=== PATIENT | male | born 1975 | race African-American/Black ===

== ENCOUNTER 2017-01-29 19:49 | Emergency (ER) | payer MEDICAID ==
[~2017-01-29] VITALS: Ht 193 cm; Wt 130.0 kg
[~2017-01-29 19:49] MED LIST: ATEN25TA PO; HYDR12.53 PO; LISI2.5T PO
[2017-01-29] MEDS ORDERED: DIPHENHYDRAMINE 50 MG/ML, 1ML ONE ×2 (20:28→21:08)
[2017-01-29] MEDS ORDERED: PROCHLORPERAZINE 5 MG/ML, 2ML ONE (20:28)
[2017-01-29] MEDS ORDERED: PROCHLORPERAZINE 5 MG/ML, 2ML IVPush ONE (20:30)
[2017-01-29] MEDS ORDERED: DIPHENHYDRAMINE 50 MG/ML, 1ML IVPush ONE ×2 (20:30→21:30)
[2017-01-29] MEDS ORDERED: SODIUM CHLORIDE 0.9% 1,000ML IVBOLUS ONE (20:30)
[2017-01-29] MEDS ORDERED: SODIUM CHLORIDE FLUSH 10ML SYR IVF ONE (20:30)
[2017-01-29 21:05] LABS: HEMOGLOBIN 15.1 g/dL (13.7-18.0)
[2017-01-29 21:08] LABS: ASPARTATE AMINO TRANSFERASE 23 U/L (15-37); BLOOD UREA NITROGEN 13 mg/dL (7-18)
[2017-01-29 21:44] VITALS: BP 120/65
== END 2017-01-29 21:46 | disposition home or self-care (01) ==
LOC: ED 21:40
DX: G44.201 Tension-type headache, unspecified, intractable (principal); D72.829 Elevated white blood cell count, unspecified; I10 Essential (primary) hypertension
CPT/HCPCS: 36415; 70450; 80053; 85025; 96361; 96374; 96375; 96376; 99285; J0780; J1200; J7030

== ENCOUNTER 2017-05-12 18:52 | Emergency (ER) | payer MEDICAID ==
[~2017-05-12] VITALS: Ht 190.5 cm; Wt 130.4 kg
[2017-05-12 18:53] VITALS: BP 146/92
[2017-05-12] MEDS ORDERED: METHOCARBAMOL 750 MG TABLET ONE (19:24)
[2017-05-12] MEDS ORDERED: KETOROLAC 30 MG/1 ML ONE (19:24)
[2017-05-12] MEDS ORDERED: ONDANSETRON ODT 4 MG ONE (19:24)
[2017-05-12] MEDS ORDERED: OXYcodone/APAP 5/325MG TABLET ONE (19:24)
[2017-05-12] MEDS ORDERED: OXYcodone/APAP 5/325MG TABLET PO ONE (19:30)
[2017-05-12] MEDS ORDERED: KETOROLAC 30 MG/1 ML IM ONE (19:30)
[2017-05-12] MEDS ORDERED: ONDANSETRON ODT 4 MG PO ONE (19:30)
[2017-05-12] MEDS ORDERED: METHOCARBAMOL 750 MG TABLET PO ONE (19:30)
[2017-05-12 20:26] LABS: BLOOD UREA NITROGEN 19 mg/dL (7-18)
[2017-05-12] MEDS ORDERED: SODIUM CHLORIDE FLUSH 10ML SYR IVF ONE (20:30)
[2017-05-12 20:38] LABS: DIFF TOTAL CELLS COUNTED 100 CELL DIFF
[2017-05-12] MEDS ORDERED: OMNIPAQUE 350 MG/ML, 150 ML BOTTLE ONE (21:00)
[2017-05-12 21:12] LABS: ANISOCYTOSIS 1+
[2017-05-12 21:13] LABS: STOMATOCYTES 1+
[2017-05-12 21:22] LABS: VERIFY COUNTS? YES
== END 2017-05-12 21:37 | disposition home or self-care (01) ==
LOC: ED 21:27
DX: M54.5 Low back pain (principal); I48.91 Unspecified atrial fibrillation; I48.92 Unspecified atrial flutter; I10 Essential (primary) hypertension; E11.9 Type 2 diabetes mellitus without complications; F17.200 Nicotine dependence, unspecified, uncomplicated; Z79.84 Long term (current) use of oral hypoglycemic drugs; Z88.1 Allergy status to other antibiotic agents
CPT/HCPCS: 36415; 72110; 74177; 80048; 81001; 85025; 96372; 99285; J1885; Q0162; Q9967

== ENCOUNTER 2019-01-19 14:01 | Inpatient (IN) | payer MEDICAID ==
[~2019-01-19] VITALS: Ht 193 cm; Wt 129.6 kg
[~2019-01-19 14:01] MED LIST changes: +HYDR12.517 PO; -HYDR12.53 PO
[2019-01-19] MEDS ORDERED: SODIUM CHLORIDE FLUSH 10ML SYR IVF ONE (14:30)
[2019-01-19] MEDS ORDERED: SODIUM CHLORIDE 0.9% 1,000ML IVBOLUS ONE (14:30)
[2019-01-19 14:47] LABS: PH, VENOUS 7.389 pH (7.320-7.420)
[2019-01-19 14:52] LABS: MEAN CORPUSCULAR HEMOGLOBIN 27.9 pg (27.5-34.5); MEAN CORPUSCULAR HGB CONC 32.5 g/dL (33.2-36.2); MEAN CORPUSCULAR VOLUME 85.8 fL (81-97); PLATELET COUNT 243 x10^3/uL (130-400); RED BLOOD COUNT 5.87 x10^6/uL (4.38-5.82); RED CELL DISTRIBUTION WIDTH 12.8 % (9.4-14.8)
[2019-01-19 15:01] LABS: ALANINE AMINOTRANSFERASE 47 U/L (12-78); ALBUMIN 4.5 g/dL (3.4-5.0); ANION GAP 13 mmol/L (5-15); CALCIUM 9.5 mg/dL (8.5-10.1); CHLORIDE 89 mmol/L (98-107); CREATININE 1.96 mg/dL (0.7-1.3)
--- NOTE | 2019-01-19 15:08 | NUR ---
REPORT RAHEL'KIRIT FROM DIANNA QUIROZ. ERP WAS IN TO SPEAK WITH PT AND FAMILY AND REVIEW POC. Addendum: 01/19/19 at 1530 by OFELIA PT STATES, "I FEEL GOOD RIGHT NOW, I FEEL LIKE I COULD GO HOME." HR REMAINS 150s-160s A-FIB.
[2019-01-19 15:12] LABS: ALKALINE PHOSPHATASE 88 U/L (45-117); BILIRUBIN,TOTAL 0.9 mg/dL (0.2-1.0); FREE T4 (FREE THYROXINE) 1.44 ng/dL (0.76-1.46); THYROID STIMULATING HORMONE 0.551 mIU/L (0.358-3.740); TOTAL PROTEIN 8.8 g/dL (6.4-8.2)
[2019-01-19] MEDS ORDERED: DILTIAZEM 125 MG in DEXTROSE 5% 100 ML IV SCH (15:12)
[2019-01-19] MEDS ORDERED: SODIUM CHLORIDE 0.9% 1,000 ML IV ONE (15:13)
[2019-01-19] MEDS ORDERED: DILTIAZEM 5 MG/ML, 10ML ONE (15:19)
[2019-01-19] MEDS ORDERED: HEPARIN 5,000 UNITS/ML, 1ML ONE (15:22)
[2019-01-19] MEDS ORDERED: INSULIN SINGLE DOSE, ER SQ-INSULIN ONE (15:23)
[2019-01-19] MEDS ORDERED: HEPARIN 25,000 UNITS/500ML PMX 500 ML ONE (15:24)
[2019-01-19 15:25] LABS: ACETONE, SERUM Small (20mg/dL) mg/dL (Negative)
[2019-01-19 15:28] LABS: BASOPHILS # (AUTO) 0.04 x10^3/uL (0-0.1); BASOPHILS % (AUTO) 0 % (0-1); EOSINOPHILS # (AUTO) 0.08 x10^3/uL (0-0.4); EOSINOPHILS % (AUTO) 1 % (1-7); LYMPHOCYTES # (AUTO) 5.24 x10^3/uL (1-3.4); LYMPHOCYTES % (AUTO) 33 % (22-44); MD SCAN; MONOCYTES # (AUTO) 0.69 x10^3/uL (0.2-0.8); MONOCYTES % (AUTO) 4 % (2-9); NEUTROPHILS # (AUTO) 10.04 x10^3/uL (1.8-6.8); NEUTROPHILS % (AUTO) 62 % (42-75)
[2019-01-19 15:30] LABS: INTERNATIONAL NORMALIZED RATIO 0.97 (0.93-1.1); PROTHROMBIN TIME 10.2 Seconds (9.6-11.5)
[2019-01-19] MEDS ORDERED: HEPARIN 5,000 UNITS/ML, 1ML IV ONE (15:30)
[2019-01-19] MEDS ORDERED: DILTIAZEM 5 MG/ML, 5ML IV ONE (15:30)
[2019-01-19] MEDS ORDERED: HEPARIN 25,000 UNITS/500ML PMX 500 ML IV PRN (15:30)
[2019-01-19] MEDS ORDERED: INSULIN REGULAR 100 UNITS/ML, 3ML VIAL SQ-INSULIN ONE ×2 (15:30)
[2019-01-19 15:31] LABS: CHOLESTEROL, TOTAL 155 mg/dL (140-239); TRIGLYCERIDES 490 mg/dL (50-200)
[2019-01-19 15:34] LABS: CHOL/HDL RATIO 6.2; HDL CHOL % 16 % (26-37); HDL CHOLESTEROL (DIRECT) 25 mg/dL (40-60); TROPONIN I < 0.015 ng/mL (0.000-0.045)
[2019-01-19 15:37] LABS: MICROSCOPIC AUTO
[2019-01-19] MEDS: HEPARIN 5,000 UNITS/ML, 1ML IV PRN ×2 (15:52→21:52)
[2019-01-19 15:55] LABS: CULTURE INDICATED? NO
--- NOTE | 2019-01-19 16:00 | NUR ---
MEDS GIVEN ORDERED, HEPAIN AND CARDIZEM GTTS STARTED. TRENCH PIPE LAYER WAS IN TO SPEAK WITH PT AND .
[2019-01-19 16:26] LABS: HEMOGLOBIN A1C 11.7 % (4.2-6.3)
[2019-01-19] MEDS ORDERED: INSULIN REGULAR 100 UNITS/ML, 3ML VIAL IVPush ONE (16:30)
[2019-01-19] MEDS ORDERED: DILTIAZEM 5 MG/ML, 5ML IVPush PRN ×2 (16:30→17:00)
[2019-01-19] MEDS ORDERED: DILTIAZEM 5 MG/ML, 5ML IVPush ONE (16:30)
[2019-01-19] MEDS: SODIUM CHLORIDE 0.9% 4,000 ML IV SCH (16:58)
[2019-01-19] MEDS ORDERED: DEXTROSE 4 GM TAB.CHEW PO PRN (17:00)
[2019-01-19] MEDS ORDERED: DEXTROSE 50%, 50ML SYRINGE IVPush PRN (17:00)
[2019-01-19] MEDS ORDERED: GLUCAGON 1 MG IM PRN (17:00)
--- NOTE | 2019-01-19 17:04 | NUR ---
PT WAS GIVEN ANOTHER 10UNITS INSULIN IVP AND ANOTHER 25MG CARDIZEM IVP FOR HR SUSTAINED IN 150S. HOSPITALIST WAS IN TO SEE PT. IVF INFUSING AT 250ML/HR. UPDATED JACOBO SHAVER RN ON POC. CT TECH TRANSPORTING PT UPSTAIRS NOW.
[2019-01-19 17:20] VITALS: BP 124/84
[2019-01-19] MEDS ORDERED: METOPROLOL TARTRATE 50 MG TABLET PO SCH (17:30)
[2019-01-19] MEDS: NICOTINE 21 MG/24 HR PATCH.TD24 TD SCH (17:45)
[2019-01-19] MEDS: INSULIN GLARGINE 100 UNITS/ML, PEN SQ-INSULIN SCH ×2 (17:47→21:14)
[2019-01-19] MEDS: INSULIN LISPRO 100 UNITS/ML, PEN SQ-INSULIN SCH ×2 (17:48→21:13)
[2019-01-19 17:52] LABS: ANION GAP 13 mmol/L (5-15); CALCIUM 8.7 mg/dL (8.5-10.1); CHLORIDE 98 mmol/L (98-107); CREATININE 1.62 mg/dL (0.7-1.3)
[2019-01-19] MEDS ORDERED: DILTIAZEM 125 MG in SODIUM CHLORIDE 0.9% 100 ML IV SCH (18:00)
[2019-01-19 18:34] VITALS: BP 121/82
[2019-01-19] MEDS: SODIUM CHLORIDE FLUSH 10ML SYR IVF SCH (21:14)
[2019-01-19] MEDS: METOPROLOL TARTRATE 25 MG TABLET PO SCH (21:52)
[2019-01-20 00:59] VITALS: BP 111/75
[2019-01-20 04:46] LABS: MEAN CORPUSCULAR HEMOGLOBIN 28.7 pg (27.5-34.5); MEAN CORPUSCULAR HGB CONC 33.2 g/dL (33.2-36.2); MEAN CORPUSCULAR VOLUME 86.3 fL (81-97); MEAN PLATELET VOLUME 10.3 fL (7.4-10.4); PLATELET COUNT 219 x10^3/uL (130-400); RED BLOOD COUNT 5.03 x10^6/uL (4.38-5.82); RED CELL DISTRIBUTION WIDTH 12.9 % (9.4-14.8)
[2019-01-20 04:52] LABS: ALBUMIN 3.4 g/dL (3.4-5.0); ANION GAP 9 mmol/L (5-15); CHLORIDE 106 mmol/L (98-107)
[2019-01-20 04:55] LABS: ALANINE AMINOTRANSFERASE 41 U/L (12-78); ALKALINE PHOSPHATASE 60 U/L (45-117); BILIRUBIN,TOTAL 0.8 mg/dL (0.2-1.0); TOTAL PROTEIN 6.7 g/dL (6.4-8.2)
[2019-01-20 05:42] LABS: MD YES
[2019-01-20 05:44] LABS: ANISOCYTOSIS 1+; EOS% (MANUAL) 3 % (1-7); LYMPH#(MANUAL) 6.38 x10^3/uL (1-3.4); LYMPHS% (MANUAL) 48 % (22-44); MONOS#(MANUAL) 0.67 x10^3/uL (0.3-2.7); MONOS% (MANUAL) 5 % (2-9); SEG#(MANUAL) 5.85 x10^3/uL (1.8-6.8); SEGS% (MANUAL) 44 % (42-75)
[2019-01-20 05:45] LABS: <PLATELET ESTIMATE> ADEQUATE; <PLT MORPHOLOGY> NORMAL PLT MORPH
[2019-01-20] MEDS: HEPARIN 5,000 UNITS/ML, 1ML IV PRN (05:52)
[2019-01-20] MEDS ORDERED: ASPIRIN 81 MG TABLET EC PO SCH (06:00)
[2019-01-20 06:47] VITALS: BP 96/63
[2019-01-20] MEDS: INSULIN LISPRO 100 UNITS/ML, PEN SQ-INSULIN SCH ×4 (08:16→21:45)
[2019-01-20] MEDS: METOPROLOL TARTRATE 25 MG TABLET PO SCH ×2 (08:17→21:18)
[2019-01-20] MEDS: INSULIN GLARGINE 100 UNITS/ML, PEN SQ-INSULIN SCH ×2 (08:17→21:45)
[2019-01-20] MEDS: PANTOPROZOLE 40MG TABLET PO SCH (08:17)
[2019-01-20] MEDS: SODIUM CHLORIDE FLUSH 10ML SYR IVF SCH ×2 (08:17→21:18)
[2019-01-20] MEDS: SODIUM CHLORIDE 0.9% 4,000 ML IV SCH (08:44)
[2019-01-20] MEDS ORDERED: DILTIAZEM 240 MG CAP.ER.24H PO SCH (09:00)
[2019-01-20] MEDS ORDERED: DIGOXIN 0.25 MG/ML, 2ML IVPush ONE (10:00)
[2019-01-20] MEDS ORDERED: AMIODARONE 150 MG in DEXTROSE 5% 100 ML IV ONE ×2 (10:30→17:30)
[2019-01-20] MEDS ORDERED: FILTER 0.22 MICRON FOR AMIODARONE IV PRN (10:30)
[2019-01-20] MEDS: AMIODARONE 200 MG TABLET PO SCH ×3 (12:37→21:17)
[2019-01-20 16:10] VITALS: BP 141/90
[2019-01-20] MEDS: NICOTINE 21 MG/24 HR PATCH.TD24 TD SCH (16:25)
[2019-01-20] MEDS ORDERED: RIVAROXABAN 20 MG TABLET PO SCH (17:00)
[2019-01-20 20:15] VITALS: BP 118/78
[2019-01-21 01:15] VITALS: BP 131/88
[2019-01-21] MEDS: SODIUM CHLORIDE 0.9% 4,000 ML IV SCH (07:00)
[2019-01-21 07:02] VITALS: BP 131/86
[2019-01-21] MEDS: PANTOPROZOLE 40MG TABLET PO SCH (07:53)
[2019-01-21] MEDS: INSULIN GLARGINE 100 UNITS/ML, PEN SQ-INSULIN SCH (07:53)
[2019-01-21] MEDS: INSULIN LISPRO 100 UNITS/ML, PEN SQ-INSULIN SCH (07:53)
[2019-01-21] MEDS: SODIUM CHLORIDE FLUSH 10ML SYR IVF SCH (07:54)
[2019-01-21] MEDS: METOPROLOL TARTRATE 25 MG TABLET PO SCH (07:54)
[2019-01-21] MEDS: AMIODARONE 200 MG TABLET PO SCH (07:54)
[2019-01-21 08:38] LABS: BASOPHILS # (AUTO) 0.08 x10^3/uL (0-0.1); BASOPHILS % (AUTO) 1 % (0-1); EOSINOPHILS # (AUTO) 0.16 x10^3/uL (0-0.4); EOSINOPHILS % (AUTO) 2 % (1-7); LYMPHOCYTES # (AUTO) 3.71 x10^3/uL (1-3.4); LYMPHOCYTES % (AUTO) 36 % (22-44); MD SCAN; MEAN CORPUSCULAR HEMOGLOBIN 28.1 pg (27.5-34.5); MEAN CORPUSCULAR HGB CONC 32.8 g/dL (33.2-36.2); MEAN CORPUSCULAR VOLUME 85.9 fL (81-97); MEAN PLATELET VOLUME 10.1 fL (7.4-10.4); MONOCYTES # (AUTO) 0.63 x10^3/uL (0.2-0.8); MONOCYTES % (AUTO) 6 % (2-9); NEUTROPHILS # (AUTO) 5.64 x10^3/uL (1.8-6.8); NEUTROPHILS % (AUTO) 55 % (42-75); PLATELET COUNT 213 x10^3/uL (130-400); RED BLOOD COUNT 4.86 x10^6/uL (4.38-5.82)
[2019-01-21 08:48] LABS: ALBUMIN 3.7 g/dL (3.4-5.0); ANION GAP 6 mmol/L (5-15); CALCIUM 8.7 mg/dL (8.5-10.1); CHLORIDE 106 mmol/L (98-107)
[2019-01-21 08:51] LABS: ALANINE AMINOTRANSFERASE 51 U/L (12-78); ALKALINE PHOSPHATASE 59 U/L (45-117); BILIRUBIN,TOTAL 0.7 mg/dL (0.2-1.0); CREATININE 1.19 mg/dL (0.7-1.3); TOTAL PROTEIN 6.9 g/dL (6.4-8.2)
[2019-01-21] MEDS ORDERED: AMIO200T42 PO (11:43)
[2019-01-21] MEDS ORDERED: METO25TA35 PO (11:43)
[2019-01-21] MEDS ORDERED: METF-650 PO (11:44)
[2019-01-21] MEDS ORDERED: INSU100I34 SQ-INSULIN (11:44)
[2019-01-21] MEDS ORDERED: PANT40TA5 PO (11:44)
[2019-01-21] MEDS ORDERED: RIVA20TA PO (11:44)
[2019-01-21] MEDS ORDERED: ALCO1MED TP (11:44)
[2019-01-21] MEDS ORDERED: NICO-487 TD (11:44)
[2019-01-21] MEDS ORDERED: ATOR40TA PO (12:14)
[2019-01-21] MEDS ORDERED: AMIODARONE 200 MG TABLET PO SCH (21:00)
== END 2019-01-21 11:35 | disposition left against medical advice (07) | DRG 682 ==
LOC: ED 16:15 → EDIP 16:20 → 5SO 16:42
PROVIDERS: ADMIT Hospitalist; ATTEND Hospitalist
DX: N17.9 Acute kidney failure, unspecified (principal); R65.11 Systemic inflammatory response syndrome (SIRS) of non-infectious origin with acute organ dysfunction; D68.59 Other primary thrombophilia; D72.829 Elevated white blood cell count, unspecified; E11.65 Type 2 diabetes mellitus with hyperglycemia; E78.1 Pure hyperglyceridemia; E78.5 Hyperlipidemia, unspecified; E86.0 Dehydration; F10.10 Alcohol abuse, uncomplicated; F12.90 Cannabis use, unspecified, uncomplicated; F17.200 Nicotine dependence, unspecified, uncomplicated; Z53.21 Procedure and treatment not carried out due to patient leaving prior to being seen by health care provider; I10 Essential (primary) hypertension; I48.91 Unspecified atrial fibrillation; Z79.82 Long term (current) use of aspirin; Z79.84 Long term (current) use of oral hypoglycemic drugs; Z82.49 Family history of ischemic heart disease and other diseases of the circulatory system; Z91.14 Patient's other noncompliance with medication regimen; Z88.8 Allergy status to other drugs, medicaments and biological substances
CPT/HCPCS: 36415; 71045; 80048; 80053; 80061; 81001; 82010; 82803; 82947; 82962; 83036; 83690; 83735; 83930; 84100; 84439; 84443; 84484; 85025; 85520; 85610; 93005; 96365; 96368; 96372; 96375; G0378; J1644; J0282; J1160; J1815; J7030

== ENCOUNTER 2019-08-11 18:47 | Emergency (ER) | payer MEDICAID, OTHER ==
[~2019-08-11] VITALS: Ht 193 cm; Wt 131.0 kg
[~2019-08-11 18:47] MED LIST changes: +ALCO1MED TP; +AMIO200T42 PO; +ATOR40TA PO; +INSU100I34 SQ-INSULIN; +METF-650 PO; +METO25TA35 PO; +NICO-487 TD; +PANT40TA5 PO; +RIVA20TA PO
[2019-08-11 18:50] VITALS: BP 134/88
[2019-08-11] MEDS ORDERED: METHOCARBAMOL 750 MG TABLET PO ONE (19:00)
[2019-08-11] MEDS ORDERED: METHOCARBAMOL 750 MG TABLET ONE (19:20)
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
== END 2019-08-11 19:50 | disposition home or self-care (01) ==
LOC: ED 19:40
DX: S16.1XXA Strain of muscle, fascia and tendon at neck level, initial encounter (principal); F17.200 Nicotine dependence, unspecified, uncomplicated; I10 Essential (primary) hypertension; I48.91 Unspecified atrial fibrillation; I48.92 Unspecified atrial flutter; E11.9 Type 2 diabetes mellitus without complications; V49.09XA Driver injured in collision with other motor vehicles in nontraffic accident, initial encounter; Y93.89 Activity, other specified; Y92.89 Other specified places as the place of occurrence of the external cause; Y99.8 Other external cause status
CPT/HCPCS: 72125; 99284

== ENCOUNTER 2020-04-18 05:04 | Emergency (ER) | payer MEDICAID, OTHER ==
[~2020-04-18] VITALS: Ht 190.5 cm; Wt 122.4 kg
[~2020-04-18 05:04] MED LIST changes: -PANT40TA5 PO; +PANT40TA6 PO
[2020-04-18] MEDS ORDERED: DILTIAZEM 5 MG/ML, 5ML ONE (05:28)
[2020-04-18] MEDS ORDERED: SODIUM CHLORIDE FLUSH 10ML SYR IVF ONE (05:30)
[2020-04-18] MEDS ORDERED: DILTIAZEM 5 MG/ML, 5ML IV ONE (05:30)
--- NOTE | 2020-04-18 05:32 | NUR ---
TASK RN: PT MEDICATED FOR HR PER MAR.
[2020-04-18 05:38] LABS: BASOPHILS # (AUTO) 0.07 x10^3/uL (0-0.1); BASOPHILS % (AUTO) 1 % (0-1); EOSINOPHILS # (AUTO) 0.06 x10^3/uL (0-0.4); EOSINOPHILS % (AUTO) 1 % (1-7); LYMPHOCYTES # (AUTO) 3.89 x10^3/uL (1-3.4); LYMPHOCYTES % (AUTO) 34 % (22-44); MD NO; MEAN CORPUSCULAR HEMOGLOBIN 28.6 pg (27.5-34.5); MEAN CORPUSCULAR HGB CONC 32.6 g/dL (33.2-36.2); MEAN PLATELET VOLUME 9.5 fL (7.4-10.4); MONOCYTES # (AUTO) 0.89 x10^3/uL (0.2-0.8); MONOCYTES % (AUTO) 8 % (2-9); NEUTROPHILS # (AUTO) 6.61 x10^3/uL (1.8-6.8); NEUTROPHILS % (AUTO) 57 % (42-75); PLATELET COUNT 266 x10^3/uL (130-400); RED BLOOD COUNT 5.31 x10^6/uL (4.38-5.82); RED CELL DISTRIBUTION WIDTH 14.5 % (9.4-14.8)
[2020-04-18 05:51] LABS: ACETONE, SERUM Negative (Negative)
[2020-04-18 05:56] LABS: ALBUMIN 3.6 g/dL (3.4-5.0); ANION GAP 5 mmol/L (5-15); CALCIUM 8.7 mg/dL (8.5-10.1); CHLORIDE 111 mmol/L (98-107)
[2020-04-18 06:01] LABS: ALANINE AMINOTRANSFERASE 73 U/L (12-78); ALKALINE PHOSPHATASE 55 U/L (45-117); BILIRUBIN,TOTAL 0.6 mg/dL (0.2-1.0); CREATININE 1.06 mg/dL (0.7-1.3); TOTAL PROTEIN 7.5 g/dL (6.4-8.2); TROPONIN I < 0.015 ng/mL (0.000-0.045)
[2020-04-18] MEDS ORDERED: DILTIAZEM 5 MG/ML, 5ML IVPush ONE (06:30)
[2020-04-18] MEDS ORDERED: PROPOFOL 10 MG/ML, 20ML IVPush ONE (06:30)
--- NOTE | 2020-04-18 06:30 | NUR ---
assumed care of pt for cardioversion procedure only. pt here with palpitations since last nocs. denies CP. consent to be obtained for procedure
[2020-04-18] MEDS ORDERED: PROPOFOL 10 MG/ML, 20ML ONE (06:31)
--- NOTE | 2020-04-18 07:00 | NUR ---
at bedside for procedure. consent has been obtained. time out performed at bedside. see procedural sedation packet
--- NOTE | 2020-04-18 07:07 | NUR ---
SUMMARY NOTE: THIS PT CAME IN FOR AFIB RVR, WITH ASSOCIATED SOB. HX OF AFIB, HTN, DM. PT IS COMING FROM HOME WHERE HE LIVES WITH HIS WHO REMAINS AT THE BEDSIDE. PT SITTING IN BED, ALL NEEDS MET WITH BLANKETS, SOCKS, URINAL, POSITIONING AND O2 ADMINISTRATION. PT EDUCATED ON POC, INCLUDING CARDIOVERSION. RICHIE ALFONSO AT BEDSIDE FOR CARDIOVERSION. REPORT GIVEN TO RICHIE LEE; TO ASSUME FULL CARE.
[2020-04-18] MEDS ORDERED: AMIODARONE 150 MG in DEXTROSE 5% 97 ML IV ONE (07:12)
[2020-04-18] MEDS ORDERED: AMIODARONE 450 MG in DEXTROSE 5% 241 ML IV PRN (07:12)
--- NOTE | 2020-04-18 07:26 | NUR ---
REPORT RECEIVED FROM KADEN QUIROZ.
[2020-04-18] MEDS ORDERED: ENALAPRILAT 1.25 MG/ML, 2ML IV ONE (07:30)
[2020-04-18] MEDS ORDERED: POTASSIUM CHLORIDE 20 MEQ TAB.ER.PRT PO ONE (07:30)
[2020-04-18] MEDS ORDERED: FILTER 0.22 MICRON FOR AMIODARONE IV PRN (08:00)
[2020-04-18] MEDS ORDERED: MAGNESIUM SULFATE PMX 2GM/50ML 50 ML IV ONE (08:00)
[2020-04-18] MEDS ORDERED: AMIODARONE 150 MG in DEXTROSE 5% 100 ML IV ONE (08:00)
[2020-04-18] MEDS ORDERED: METOPROLOL 1 MG/ML, 5ML ONE ×3 (08:03→09:30)
[2020-04-18] MEDS: METOPROLOL 1 MG/ML, 5ML IVPush PRN ×3 (08:05→09:32)
--- NOTE | 2020-04-18 08:11 | NUR ---
pt medicated per emar. amio infusing at this time. pt tolerated well.
--- NOTE | 2020-04-18 08:52 | NUR ---
PT MEDICATED PER EMAR. PT TOLERATED WELL.
--- NOTE | 2020-04-18 09:00 | NUR ---
this rn changed iv pump x 2 d/t alarm. eliza rn helped to stop alarm but no success.
[2020-04-18] MEDS ORDERED: POTASSIUM CHLORIDE 20 MEQ TAB.ER.PRT ONE (09:06)
[2020-04-18] MEDS ORDERED: ENALAPRILAT 1.25 MG/ML, 1ML ONE (09:06)
--- NOTE | 2020-04-18 09:13 | NUR ---
pt medicated per emar. pt tolerated well. pt's aox4. resps even and unlabored. denies any needs or concerns at this time. denies any cp/sob.
--- NOTE | 2020-04-18 09:36 | NUR ---
pt medicated per emar. amio infusing again. no alarm beeping at this time. pt tolerated well.
[2020-04-18 09:37] VITALS: BP 162/113
[2020-04-18] MEDS ORDERED: DIGOXIN 0.25 MG/ML, 2ML IVPush ONE (10:00)
--- NOTE | 2020-04-18 10:12 | NUR ---
PT STATED "I DON'T WANNA HAVE ANY MED ANYMORE. I GOTTA GO HOME NOW. I JUST WANNA TALK TO THE DOCTOR AND LEAVE." EDMD AT BEDSIDE TO EXPLAIN RISKS. PT VERBALLY UNDERSTANDING AT THIS TIME. PT SIGNED AMA PAPER. PT AMB TO EXIT WITH STEADY GAIT.
== END 2020-04-18 10:16 | disposition left against medical advice (07) ==
LOC: ED 06:11 → UNDOADMIN 07:13 → EDIP 07:13
DX: I48.0 Paroxysmal atrial fibrillation (principal); I11.0 Hypertensive heart disease with heart failure; I50.31 Acute diastolic (congestive) heart failure; R94.31 Abnormal electrocardiogram [ECG] [EKG]; E11.9 Type 2 diabetes mellitus without complications
CPT/HCPCS: 36415; 71045; 80053; 82010; 83036; 83735; 83880; 84484; 85025; 92960; 93005; 96365; 96375; 96376; 99291; J0282; 96366

== ENCOUNTER 2020-09-03 05:18 | Emergency (ER) | payer MEDICAID ==
[~2020-09-03 05:18] MED LIST changes: -METF-650 PO; +METF-735 PO
--- NOTE | 2020-09-03 05:23 | NUR ---
CALLED FOR TRIAGE, NO ANSWER
--- NOTE | 2020-09-03 05:33 | NUR ---
CALLED FOR TRIAGE, NO ANSWER
--- NOTE | 2020-09-03 05:40 | NUR ---
CALLED FOR TRIAGE, NO ANSWER
== END 2020-09-03 05:42 | disposition left against medical advice (07) ==
LOC: ED 05:35
DX: R06.02 Shortness of breath (principal); Z53.21 Procedure and treatment not carried out due to patient leaving prior to being seen by health care provider

== ENCOUNTER 2021-06-27 01:19 | Emergency (ER) | payer MEDICAID ==
[~2021-06-27] VITALS: Ht 190.5 cm; Wt 112.3 kg
[~2021-06-27 01:19] MED LIST changes: -LISI2.5T PO; +LISI2.5T12 PO; -NICO-487 TD; +NICO-587 TD
--- NOTE | 2021-06-27 01:26 | NUR ---
EKG DONE IN TRIAGE.
--- NOTE | 2021-06-27 01:48 | NUR ---
chest xray completed at bedside.
[2021-06-27 01:58] LABS: BASOPHILS % (AUTO) 1 % (0-1); EOSINOPHILS % (AUTO) 1 % (1-7); LYMPHOCYTES % (AUTO) 39 % (22-44); MEAN CORPUSCULAR HEMOGLOBIN 29.2 pg (27.5-34.5); MEAN CORPUSCULAR HGB CONC 34.6 g/dL (33.2-36.2); MEAN PLATELET VOLUME 9.2 fL (7.4-10.4); MONOCYTES % (AUTO) 10 % (2-9); NEUTROPHILS % (AUTO) 50 % (42-75); PLATELET COUNT 236 x10^3/uL (130-400)
[2021-06-27 02:08] LABS: ALBUMIN 3.7 g/dL (3.4-5.0); CALCIUM 8.9 mg/dL (8.5-10.1); CHLORIDE 102 mmol/L (98-107); CREATININE 1.14 mg/dL (0.7-1.3)
[2021-06-27 02:15] LABS: ANION GAP 11 mmol/L (5-15)
[2021-06-27] MEDS ORDERED: POTASSIUM CHLORIDE 40 MEQ in SODIUM CHLORIDE 0.9% 500 ML IV ONE (03:00)
[2021-06-27] MEDS ORDERED: SODIUM CHLORIDE 0.9% 1,000ML IVBOLUS ONE (03:00)
[2021-06-27] MEDS ORDERED: POTASSIUM CHLORIDE 20 MEQ TAB.ER.PRT PO ONE (03:00)
[2021-06-27] MEDS ORDERED: POTASSIUM CHLORIDE 20 MEQ TAB.ER.PRT ONE (03:20)
--- NOTE | 2021-06-27 03:30 | NUR ---
PATIENT RESTING IN BED. NO NOTED NEEDS AT THIS TIME. WILL CONTINUE TO MONITOR.
--- NOTE | 2021-06-27 04:20 | NUR ---
PATIENT RESTING IN BED. NO NOTED NEEDS AT THIS TIME. WILL CONTINUE TO MONITOR.
--- NOTE | 2021-06-27 05:26 | NUR ---
PATIENT UP TO RESTROOM, TOLERATED WELL. NO NOTED FURTHER NEEDS. UPDATED ON PLAN OF CARE. WILL CONTINUE TO MONITOR.
--- NOTE | 2021-06-27 06:14 | NUR ---
PATIENT RESTING IN BED, EVEN-UNLABORED RESPIRATIONS NOTED. LIGHTS DIMMED, BED IN LOWEST LOCKED POSITION. WILL CONTINUE TO MONITOR.
[2021-06-27 06:32] VITALS: BP 168/88
--- NOTE | 2021-06-27 06:45 | NUR ---
PATIENT IS REQUESTING TO LEAVE PRIOR TO K+ FINISHING. PATIENT ABLE TO VERABLIZE POSSIBLE COMPLICATIONS RELATED TO NOT FINISHING K+. VSS. MD DEL ROSARIO CLEARED EARLY DISCHARGE OF PATIENT. PATIENT DENIES ANY COMPLICATIONS AT TIME OF DC, VSS. AMBULATORY TO DISCHARGE WITHOUT COMPLICATIONS WITH BELONGINGS.
== END 2021-06-27 06:48 | disposition home or self-care (01) ==
LOC: ED 05:49
DX: B34.9 Viral infection, unspecified (principal); E87.6 Hypokalemia; R06.02 Shortness of breath; I10 Essential (primary) hypertension; I11.0 Hypertensive heart disease with heart failure; I50.9 Heart failure, unspecified; I48.91 Unspecified atrial fibrillation; E11.9 Type 2 diabetes mellitus without complications; I48.92 Unspecified atrial flutter; F17.210 Nicotine dependence, cigarettes, uncomplicated
CPT/HCPCS: 36415; 71045; 80048; 82040; 83735; 85025; 93005; 96365; 96366; 99285; 99406; J3480; J7030; J7040